=== PATIENT | female | born 1990 | race Caucasian/White ===

== ENCOUNTER 2017-07-05 11:35 | Day surgery (SDC) | payer OTHER ==
[~2017-07-05] VITALS: Ht 162.6 cm; Wt 74.8 kg
== END 2017-07-05 14:50 | disposition short-term general hospital (02) ==
LOC: SURGOP 11:35
PROC: 06BY0ZC Excision of Hemorrhoidal Plexus, Open Approach (ICD-10-PCS; principal; 2017-07-05)
DX: K64.8 Other hemorrhoids (principal); K64.4 Residual hemorrhoidal skin tags; E66.9 Obesity, unspecified; Z68.28 Body mass index [BMI] 28.0-28.9, adult; Z88.5 Allergy status to narcotic agent; Z90.49 Acquired absence of other specified parts of digestive tract
CPT/HCPCS: J2250; J3010